=== PATIENT | male | born 1980 | race Caucasian/White ===

== ENCOUNTER → 2017-01-22 | Outpatient (REF) | payer BC | LOC: M LAB REF 17:42 | PROVIDERS: ATTEND Nurse Practitioner Family | DX: R00.0 Tachycardia, unspecified (principal) ==

== ENCOUNTER → 2017-01-31 | Outpatient (CLI) | payer BC ==
--- NOTE | 2017-02-01 15:24 | REP ---
NUCLEAR THYROID UPTAKE AND SCAN: Following the oral administration of 36 mCi iodine 123 as sodium iodine, thyroid uptake is measured. The 24 hour uptake is 0.16% which is markedly low. Normal uptake should be 25 to 35%. Thyroid scan shows essentially no uptake in either lobe of the thyroid. Signed by Charles Yanez MD 02/01/2017 05:01 P
== END ==
LOC: M RAD 12:22
PROVIDERS: ATTEND Internal Medicine Endocrinology, Diabetes & Metabolism
DX: E05.00 Thyrotoxicosis with diffuse goiter without thyrotoxic crisis or storm (principal)
CPT/HCPCS: 78012; A9516

== ENCOUNTER → 2017-03-06 | Outpatient (CLI) | payer BC ==
[2017-03-06 17:41] LABS: FREE T4 1.14 NG/DL (0.76-1.46); THYROID STIMULATING HORMONE < 0.005 uIU/ML (0.358-3.740)
[2017-03-06 17:44] LABS: THYROID PEROXIDASE ANTIBODY < 28.0 U/ML (<60.0)
== END ==
LOC: M LAB 15:21
DX: E05.00 Thyrotoxicosis with diffuse goiter without thyrotoxic crisis or storm (principal)
CPT/HCPCS: 84443

== ENCOUNTER → 2017-04-19 | Outpatient (CLI) | payer BC ==
[2017-04-19 17:51] LABS: FREE T4 0.94 NG/DL (0.76-1.46)
== END ==
LOC: M LAB 15:24
DX: E06.1 Subacute thyroiditis (principal)
CPT/HCPCS: 84443

== ENCOUNTER → 2017-11-01 | Outpatient (REF) | payer BC | LOC: M LAB REF 18:06 | DX: J02.9 Acute pharyngitis, unspecified (principal) | CPT/HCPCS: 87081 ==

== ENCOUNTER → 2017-12-18 | Outpatient (REF) | payer BC ==
[2017-12-18 14:38] LABS: CHLAMYDIA DNA AMPLIFICATION NEGATIVE (NEGATIVE); GC DNA AMPLIFICATION NEGATIVE (NEGATIVE)
== END ==
LOC: M LAB REF 12:45
DX: N39.0 Urinary tract infection, site not specified (principal)

== ENCOUNTER → 2018-12-12 | Outpatient (REF) | payer BC ==
[2018-12-12 17:34] LABS: APPEARANCE, URINE CLEAR (CLEAR); BACTERIA, URINE AUTO NEGATIVE (NEGATIVE); BILIRUBIN, URINE AUTO NEGATIVE (NEGATIVE); BLOOD, URINE BLOOD NEGATIVE (NEGATIVE); COLOR, URINE STRAW (YELLOW); GLUCOSE, URINE (UA) AUTO NEGATIVE (NEGATIVE); KETONE, URINE AUTO NEGATIVE (NEGATIVE); LEUKOCYTE ESTERASE, URINE AUTO NEGATIVE (NEGATIVE); NITRITE, URINE AUTO NEGATIVE (NEGATIVE); PROTEIN, URINE AUTO NEGATIVE (NEGATIVE); RBC, URINE AUTO 0 /HPF (0-3); SQUAMOUS EPITHELIAL CELL UR AU 0 /HPF (0-6); UROBILINOGEN, URINE AUTO 0.2 mg/dL (0.0-2.0); WBC, URINE AUTO 1 /HPF (0-3)
== END ==
LOC: M LAB REF 16:18
PROVIDERS: ATTEND Family Medicine
DX: R30.0 Dysuria (principal)

== ENCOUNTER → 2019-07-31 | Outpatient (CLI) | payer BC ==
[2019-07-31 13:33] LABS: FREE T3 3.1 PG/ML (2.2-4.0); THYROID STIMULATING HORMONE 2.24 uIU/ML (0.358-3.740); THYROXINE (T4) 7.7 UG/DL (4.5-12.0)
[2019-08-01 15:07] LABS: FREE ANDROGEN INDEX 45.1 (24.0-122.0); SEX HORM BINDING GLOB 17.7 nmol/L (16.5-55.9); TESTOSTERONE 230 ng/dL (264-916)
== END ==
LOC: M LAB 12:18
PROVIDERS: ATTEND Internal Medicine Endocrinology, Diabetes & Metabolism
DX: E07.9 Disorder of thyroid, unspecified (principal)

== ENCOUNTER → 2020-04-13 | Outpatient (REF) | payer BC | LOC: M LAB REF 12:23 | PROVIDERS: ATTEND Nurse Practitioner Family | DX: R30.0 Dysuria (principal) ==

== ENCOUNTER → 2020-04-28 | Outpatient (CLI) | payer BC ==
--- NOTE | 2020-04-28 13:56 | REP ---
INDICATION: URINARY FREQUENCY AND PAIN. COMPARISON: None. TECHNIQUE: Limited pelvic bladder sonography with pre and postvoid imaging. FINDINGS: Scanning through the urine filled bladder demonstrates calculated prevoid bladder volume of 1206 mL. Bladder is considered distended. Emptying ureteral jets are observed bilaterally on color Doppler interrogation of the bladder lumen. No bladder mass lesion is observed. Postvoid imaging shows a 201 mL postvoid residual (17%). The prostate gland is incompletely seen on trans abdominal scanning but does not appear particularly enlarged. Bladder milligan are smooth. IMPRESSION: Large dilated bladder capacity, 200 mL postvoid residual consistent with incomplete emptying. Otherwise negative. <Electronically signed by Frankie Joseph > 04/28/20 [id number]
== END ==
LOC: M RAD 13:01
PROVIDERS: ATTEND Family Medicine
DX: R35.0 Frequency of micturition (principal); R10.30 Lower abdominal pain, unspecified

== ENCOUNTER → 2022-12-17 | Outpatient (REF) | payer BC | LOC: M LAB REF 15:46 | PROVIDERS: ATTEND Surgery | DX: C44.519 Basal cell carcinoma of skin of other part of trunk (principal) ==

== ENCOUNTER → 2023-01-28 | Outpatient (REF) ==
[2023-01-28 11:26] LABS: RSV AMPLIFICATION NEGATIVE (NEGATIVE)
== END ==
LOC: M EMP 09:15
PROVIDERS: ATTEND Family Medicine
DX: Z11.52 Encounter for screening for COVID-19 (principal)

== ENCOUNTER → 2024-11-23 | Outpatient (REF) ==
[2024-11-23 10:19] LABS: SOFIA COVID ANTIGEN NEGATIVE (NEGATIVE)
== END ==
LOC: M EMP 09:26
PROVIDERS: ATTEND Family Medicine
DX: Z01.89 Encounter for other specified special examinations (principal)